=== PATIENT | male | born 1955 | race Caucasian/White ===

== ENCOUNTER → 2017-01-17 | Outpatient (CLI) | payer BC, SELFPAY ==
--- NOTE | 2017-01-17 10:24 | CT ---
EXAM DESCRIPTION: Abdomen/Pelvis w/Contrast CLINICAL HISTORY: HEPATOSPLENOMEGALY COMPARISON: None Available TECHNIQUE: CT of the abdomen and Pelvis was performed with IV contrast. This exam was performed according to our departmental dose-optimization program, which includes automated exposure control, adjustment of the mA and/or kV according to patient size and/or use of iterative reconstruction technique. FINDINGS: The lung bases are unremarkable. There is no pneumoperitoneum, ascites or adenopathy. No abdominal aortic aneurysm. There is no evidence of hepatosplenomegaly. The spleen measures 11 or 12 cm in length. No focal hepatic or splenic lesion. No calcified gallstone or biliary duct dilation. There are a few tiny nonobstructing right renal calculi. The kidneys and adrenals are otherwise unremarkable. No dilated small bowel loops, small bowel wall thickening or mesenteric inflammation. The prostate is slightly enlarged resulting in mild mass effect on the bladder floor. No bladder wall thickening. No colonic wall thickening or pericolonic inflammation. No concerning bone lesion. There are degenerative changes in the lumbar spine at multiple levels including degenerative disc disease, worse at L2-3 and L3-4, with slight convex rightward scoliosis. Incidentally noted is a tiny lipoma in the left lateral abdominal wall muscles, doubtful clinical significance.. IMPRESSION: No evidence of hepatosplenomegaly. Slightly enlarged prostate, please correlate with serum PSA evaluation. Degenerative changes in the lumbar spine including degenerative disc disease at L2-L3 4. Several small nonobstructing right renal calculi. Electronically signed by: Gustavo Dejesus MD 01/17/2017 10:23 AM CDT Workstation: [id number]
== END ==
LOC: CT 09:26
PROVIDERS: ATTEND Internal Medicine Hematology & Oncology
DX: D68.51 Activated protein C resistance (principal); D75.1 Secondary polycythemia

== ENCOUNTER → 2017-02-05 | Outpatient (CLI) | payer SELFPAY ==
--- NOTE | 2017-02-05 10:29 | RAD ---
EXAM DESCRIPTION: Fingers,Right CLINICAL HISTORY: 61 years Male, TRAUMA COMPARISON: None. FINDINGS: 3 views of the right third (middle) finger show distal soft tissue injury with a tiny nondisplaced terminal tuft fracture. No radial opaque foreign body or soft tissue gas. IMPRESSION: Tiny nondisplaced terminal tuft fracture with overlying soft tissue injury suggesting the possibility of open fracture. Electronically signed by: Gustavo Dejesus MD 02/05/2017 10:28 AM CDT
== END | disposition home or self-care (01) ==
LOC: RAD 12:59
PROVIDERS: ATTEND Family Medicine
DX: S69.81XA Other specified injuries of right wrist, hand and finger(s), initial encounter (principal)

== ENCOUNTER → 2017-03-23 | Outpatient (CLI) | payer BC | END | disposition home or self-care (01) | LOC: LAB.O 10:02 | PROVIDERS: ATTEND Internal Medicine Hematology & Oncology | DX: D68.51 Activated protein C resistance (principal) ==

== ENCOUNTER → 2017-03-26 | Outpatient (CLI) | payer BC | END | disposition home or self-care (01) | LOC: LAB.O 15:37 | PROVIDERS: ATTEND Internal Medicine Hematology & Oncology | DX: D68.51 Activated protein C resistance (principal) ==

== ENCOUNTER → 2017-04-04 | Outpatient (CLI) | payer BC | END | disposition home or self-care (01) | LOC: LAB.O 10:02 | PROVIDERS: ATTEND Internal Medicine Hematology & Oncology | DX: D68.51 Activated protein C resistance (principal) ==

== ENCOUNTER → 2017-04-09 | Outpatient (CLI) | payer BC | END | disposition home or self-care (01) | LOC: LAB.O 12:17 | PROVIDERS: ATTEND Internal Medicine Hematology & Oncology | DX: D68.51 Activated protein C resistance (principal) ==

== ENCOUNTER → 2017-04-25 | Outpatient (CLI) | payer BC | END | disposition home or self-care (01) | LOC: LAB.O 13:58 | PROVIDERS: ATTEND Internal Medicine Hematology & Oncology | DX: D68.51 Activated protein C resistance (principal) ==

== ENCOUNTER → 2017-05-24 | Outpatient (CLI) | payer BC | END | disposition home or self-care (01) | LOC: LAB.O 13:38 | PROVIDERS: ATTEND Internal Medicine Hematology & Oncology | DX: D68.51 Activated protein C resistance (principal) ==

== ENCOUNTER → 2017-06-26 | Outpatient (CLI) | payer BC | LOC: LAB.O 11:46 | PROVIDERS: ATTEND Internal Medicine Hematology & Oncology | DX: D68.51 Activated protein C resistance (principal) ==

== ENCOUNTER → 2017-07-11 | Outpatient (CLI) | payer BC | LOC: LAB.O 09:11 | PROVIDERS: ATTEND Family Medicine | DX: R73.9 Hyperglycemia, unspecified (principal) ==

== ENCOUNTER → 2017-11-13 | Outpatient (CLI) | payer BC | LOC: LAB.O 12:51 | PROVIDERS: ATTEND Internal Medicine Hematology & Oncology | DX: C75.1 Malignant neoplasm of pituitary gland (principal) ==

== ENCOUNTER → 2017-11-15 | Outpatient (CLI) | payer BC ==
--- NOTE | 2017-11-15 13:07 | MRI ---
EXAM DESCRIPTION: MRI brain without and with contrast CLINICAL HISTORY: Chronic migraine headaches COMPARISON: Intracranial MRA same day TECHNIQUE: Multi planar, multi sequence MRI evaluation of the brain, pre and post intravenous gadolinium FINDINGS: No intracranial hemorrhage, infarction, or mass lesion. Normal jones-white matter differentiation. No restricted diffusion. No pathologic enhancement throughout the brain FLAIR images best demonstrate multifocal punctate hyperintensities in the subcortical, deep and periventricular white matter of the bilateral cerebral hemispheres. No white matter abnormality of the brainstem or posterior fossa. Nonspecific likely manifestation of chronic microvascular ischemia. White matter hyperintensities can be seen in patients with migraine headaches Ventricles are mildly prominent. Cavum septum pellucidum et vergae. No dilation of temporal horns, third and fourth ventricles Normal flow voids are present in the major intracranial arteries and dural venous sinuses No abnormality is seen along the course of the cranial nerves. Normal appearance of the temporal bones Orbits are grossly normal Normal aeration of paranasal sinuses and mastoid air cells IMPRESSION: Mild white matter disease, nonspecific likely chronic microvascular ischemia. No acute abnormality Electronically signed by: Live Driscoll MD 11/15/2017 1:05 PM CDT
--- NOTE | 2017-11-15 13:09 | MRI ---
EXAM DESCRIPTION: MRA Head and/or Neck CLINICAL HISTORY: Chronic migraines with aura. Headaches COMPARISON: MRI brain same day TECHNIQUE: [3D [id number] intracranial MR angiography. 3D MIPS images were generated at a computer workstation and submitted for interpretation] FINDINGS: [No aneurysm, stenosis, or vascular malformation.] Carotid dominant supply to the right posterior cerebral artery. Dominant left vertebral artery supply to the basilar artery. IMPRESSION: [Normal intracranial MR angiogram] Electronically signed by: Live Driscoll MD 11/15/2017 1:07 PM CDT
== END ==
LOC: MRI 09:13
DX: G43.711 Chronic migraine without aura, intractable, with status migrainosus (principal); H53.40 Unspecified visual field defects

== ENCOUNTER → 2019-01-14 | Outpatient (CLI) | payer BC | LOC: LAB.O 14:42 | PROVIDERS: ATTEND Electrodiagnostic Medicine | DX: E03.9 Hypothyroidism, unspecified (principal) ==

== ENCOUNTER → 2019-01-19 | Outpatient (CLI) | payer BC | LOC: SL 20:19 | PROVIDERS: ATTEND Electrodiagnostic Medicine | DX: G47.30 Sleep apnea, unspecified (principal) ==

== ENCOUNTER → 2019-03-02 | Outpatient (CLI) | payer BC | LOC: SL 19:17 | PROVIDERS: ATTEND Electrodiagnostic Medicine | DX: G47.30 Sleep apnea, unspecified (principal) ==

== ENCOUNTER → 2019-03-21 | Outpatient (CLI) | payer BC ==
--- NOTE | 2019-03-21 11:18 | MRI ---
EXAM DESCRIPTION: MRI brain without contrast CLINICAL HISTORY: MIGRAINE, MEMORY LOSS COMPARISON: 11/15/2017 TECHNIQUE: Multi planar, multi sequence MRI evaluation of the brain FINDINGS: No intracranial hemorrhage, infarction, or mass lesion. Normal jones-white matter differentiation. No restricted diffusion Mild white matter disease with multifocal punctate T2/flair hyperintensities in the subcortical, deep and to lesser extent periventricular white matter of the bilateral cerebral hemispheres nonspecific, consistent with chronic microvascular ischemia. Similar appearance compared to previous study. Cancer septum pellucidum et vergae. Similar mildly prominent ventricular system Normal flow voids are present in the major intracranial arteries and dural venous sinuses No abnormality is seen along the course of the cranial nerves. Normal appearance of the temporal bones Orbits are grossly normal Mild mucosal thickening. No fluid in the paranasal sinuses and mastoid air cells IMPRESSION: Mild white matter disease consistent with chronic microvascular ischemia. This can be seen in patients with migraine headaches. Similar appearance on previous study No acute abnormality of the brain Electronically signed by: Live Driscoll MD 03/21/2019 11:16 AM CDT
== END ==
LOC: MRI 09:00
PROVIDERS: ATTEND Electrodiagnostic Medicine
DX: G43.009 Migraine without aura, not intractable, without status migrainosus (principal); R90.82 White matter disease, unspecified; R41.3 Other amnesia

== ENCOUNTER → 2019-10-08 | Outpatient (CLI) | payer BC | LOC: LAB.O 15:12 | PROVIDERS: ATTEND Electrodiagnostic Medicine | DX: R41.3 Other amnesia (principal); R25.1 Tremor, unspecified ==

== ENCOUNTER → 2019-12-26 | Outpatient (CLI) | payer BC ==
--- NOTE | 2019-12-28 13:08 | RAD ---
EXAM DESCRIPTION: Hand,Right 2 Views CLINICAL HISTORY: 64 years Male, PAIN IN RIGHT HAND COMPARISON: None. FINDINGS: 3 views of the right hand show no acute fracture or malalignment. [id number] joint space narrowing involving several interphalangeal joints, worse at the fifth the IP joint. Mild osteophytosis at the interphalangeal joint of the thumb. No lytic bone lesion. The bones are not demineralized, no soft tissue swelling. Vascular calcifications. IMPRESSION: Mild polyarticular degenerative changes, worse at the fifth DIP joint and interphalangeal joint of the thumb. Electronically signed by: Gustavo Dejesus MD 12/28/2019 1:07 PM CDT
--- NOTE | 2019-12-28 13:09 | RAD ---
EXAM DESCRIPTION: Wrist,Left 3 Views CLINICAL HISTORY: 64 years Male, PAIN IN UNSPEC JOINT WRIST COMPARISON: None. FINDINGS: 3 left wrist show no acute fracture or malalignment. Joint space narrowing and osteophyte formation at the first CMC joint. No additional joint space narrowing. No lytic bone lesion. Vascular calcifications. IMPRESSION: Mild to moderate degenerative changes at the first CMC joint. Electronically signed by: Gustavo Dejesus MD 12/28/2019 1:08 PM CDT
--- NOTE | 2019-12-28 13:11 | RAD ---
EXAM DESCRIPTION: Hand,Left 2 Views CLINICAL HISTORY: 64 years Male, PAIN IN LEFT HAND COMPARISON: None. FINDINGS: 3 views of the left hand show no acute fracture or malalignment. Mild joint space narrowing involving several interphalangeal joints, slightly worse at the fifth DIP joint. No lytic bone lesion. No bony demineralization. No soft tissue swelling. IMPRESSION: Mild polyarticular degenerative changes, slightly worse at the fifth DIP joint. Electronically signed by: Gustavo Dejesus MD 12/28/2019 1:10 PM CDT
--- NOTE | 2019-12-28 13:12 | RAD ---
EXAM DESCRIPTION: Wrist,Right 3 Views CLINICAL HISTORY: 64 years Male, PAIN IN RIGHT WRIST COMPARISON: None. FINDINGS: 3 views of the right wrist show no acute fracture or malalignment. Slight joint space narrowing at the first CMC and triscaphe joints. Minimal radiocarpal joint space narrowing. No significant productive change, no lytic bone lesion. Vascular calcifications. IMPRESSION: Mild degenerative changes laterally in the right wrist. Electronically signed by: Gustavo Dejesus MD 12/28/2019 1:11 PM CDT
== END ==
LOC: RAD 12-25 15:39
PROVIDERS: ATTEND Family Medicine
DX: M19.031 Primary osteoarthritis, right wrist (principal); M19.041 Primary osteoarthritis, right hand; M19.032 Primary osteoarthritis, left wrist; M19.042 Primary osteoarthritis, left hand

== ENCOUNTER → 2020-03-29 | Outpatient (CLI) | payer BC | LOC: GMAM 11:05 | PROVIDERS: ATTEND Family Medicine | DX: Z00.00 Encounter for general adult medical examination without abnormal findings (principal) ==